=== PATIENT | male | born 1940 | race Caucasian/White ===

== ENCOUNTER 2018-10-25 04:20 | Emergency (ER) | payer MEDICARE, BC ==
[~2018-10-25] VITALS: Ht 182.9 cm; Wt 79.5 kg
[~2018-10-25 04:20] MED LIST: ASPIRIN 32325 MG/TA1 PO; ASPIRIN 32325 MG/TAB PO; ASPIRIN 81M81 MG/TA2 PO; ASPIRIN E.C.325 MG PO; CARAFATE S1 GM/10 ML PO; CARDENE 30MG CA30 M1 PO; CARDENE 30MG CA30 MG PO; CARDURA 2MG2 MG PO; CARDURA 8MG TAB8 MG PO; CLOPIDOGREL PO; CO Q-1010 M1 PO; COLACE 100100 MG/CAP PO; DOXAZOCIN PO; EFFIENT PO; ELAVIL10 MG PO; GINKGO3 PO; LEVOTHYROXINE0.05 M1 PO; LOPRESSOR 225 MG/TAB PO; LOPRESSOR 550 MG/TAB PO; LORTAB 5/500 501 TAB PO; MILK THISTLE E140 M1 PO; MULTI VITAMINS1 TAB PO; NITROQUICK0.4 MG SL; NITROSTAT0.4 MG/TAB SL; NORCO 325 MG-51 TAB PO; OMEPRAZOLE20 M1 PO; PLAVIX 75MG TAB75 MG PO; PRIL40 PO; PRILOSEC 20MG20 MG PO; PRILOSEC PO; PROSCAR 5MG5 MG PO; PROTONIX 40MG T40 MG PO; PYRIDIUM200 M1 PO; RANITIDINE300 MG PO; RT ADVAIR 128 DISKUS IH; RT SPIRIVA18 MCG IH; SIMVASTATIN5 MG PO; SYNTHROID0.05 MG/TA PO; TIROSINT50 MC1 PO; TOPROL XL 25MG25 MG PO; TYLENOL 325MG325 MG PO; VYTORIN PO; ZANTAC 300300 MG PO; ZANTAC PO; ZITHROMAX 250M250 MG PO; ZOCOR 80MG80 MG PO; ZOFRAN 4MG T4 MG/TAB PO
[2018-10-25 04:39] VITALS: TEMP 98
[2018-10-25 04:44] LABS: BASO # 0.1 (0.0-0.2); BASO % 1.3 % (0.0-2.0); EOS # 0.1 (0.0-0.7); EOS % 1.6 % (0-4.0); GRAN # 2.7 (1.4-6.5); GRAN % 49.5 % (42.2-75.2); HEMATOCRIT 43.2 % (42.0-52.0); HEMOGLOBIN 15.3 g/dl (13.5-18.0); LYMPH # 2.1 (1.2-3.4); LYMPH % 38.6 % (20.0-51.0); MEAN CELL VOLUME 99 fl (80.0-100.0); MEAN CORPUSCULAR HEMOGLOBIN 35 pg (27.0-31.0); MEAN CORPUSCULAR HGB CONC 35 g/dl (33.0-37.0); MEAN PLATELET VOLUME 8.9 fl (7.4-10.4); MONO # 0.5 (0.1-0.6); MONO % 8.8 % (1.7-9.3); PLATELET COUNT 233 K/mm3 (130-400); RED BLOOD COUNT 4.35 M/mm3 (4.20-5.60); REDCELL DISTRIBUTION WIDTH-CV 13.1 % (11.5-14.5)
[2018-10-25 04:49] LABS: PROTHROMBIN TIME 11.6 SECONDS (9.7-12.8)
[2018-10-25 05:16] LABS: ALBUMIN 3.7 gm/dL (3.5-5.0); BILIRUBIN,TOTAL 0.6 mg/dL (0.0-1.0); CALCIUM 9.1 mg/dL (8.4-10.2); CREATININE, serum 0.92 mg/dL (0.66-1.25); POTASSIUM 4.1 mmol/L (3.4-5.0); TOTAL PROTEIN 6.7 gm/dL (6.4-8.2)
[2018-10-25 05:55] VITALS: BP 80/62
[2018-10-25] MEDS ORDERED: OMNICEF 300MG300 MG PO (07:41)
[2018-10-25] MEDS ORDERED: ZITHROMAX Z PA250 MG PO (07:41)
[2018-10-25 08:55] VITALS: PULSE 70
== END 2018-10-25 08:50 | disposition home or self-care (01) ==
LOC: COL.ER 04:20
PROVIDERS: Emergency Medicine
DX: J18.9 Pneumonia, unspecified organism (principal); I10 Essential (primary) hypertension; E03.9 Hypothyroidism, unspecified; I25.10 Atherosclerotic heart disease of native coronary artery without angina pectoris; Z79.82 Long term (current) use of aspirin; Z95.0 Presence of cardiac pacemaker; Z95.5 Presence of coronary angioplasty implant and graft
CPT/HCPCS: A4216; J0696; J2270; Q9967

== ENCOUNTER → 2019-01-01 | Outpatient (CLI) | payer MEDICARE, BC ==
[~2019-01-01] MED LIST changes: +OMNICEF 300MG300 MG PO; +ZITHROMAX Z PA250 MG PO
== END ==
LOC: COL.RAD 13:53
DX: R91.8 Other nonspecific abnormal finding of lung field (principal); Z95.0 Presence of cardiac pacemaker; Z95.828 Presence of other vascular implants and grafts

== ENCOUNTER 2019-02-20 09:16 | Emergency (ER) | payer MEDICARE, BC ==
[~2019-02-20] VITALS: Ht 182.9 cm; Wt 81.8 kg
[2019-02-20 09:58] VITALS: TEMP 97.8
[2019-02-20] MEDS ORDERED: NORCO 325 MG-51 TAB PO (11:37)
[2019-02-20 12:04] VITALS: BP 140/97; PULSE 69
== END 2019-02-20 12:00 | disposition home or self-care (01) ==
LOC: COL.ER 09:16
DX: S86.912A Strain of unspecified muscle(s) and tendon(s) at lower leg level, left leg, initial encounter (principal); I25.10 Atherosclerotic heart disease of native coronary artery without angina pectoris; Z87.891 Personal history of nicotine dependence; Z95.5 Presence of coronary angioplasty implant and graft; Y92.009 Unspecified place in unspecified non-institutional (private) residence as the place of occurrence of the external cause; X50.0XXA Overexertion from strenuous movement or load, initial encounter
CPT/HCPCS: L1846

== ENCOUNTER → 2019-03-08 | Outpatient (CLI) | payer MEDICARE, BC | LOC: COL.RAD 10:13 | DX: S83.232A Complex tear of medial meniscus, current injury, left knee, initial encounter (principal); M47.814 Spondylosis without myelopathy or radiculopathy, thoracic region; R06.02 Shortness of breath; Z95.0 Presence of cardiac pacemaker ==

== ENCOUNTER → 2019-12-18 | Outpatient (CLI) | payer MEDICARE, BC ==
[2019-12-18 12:32] LABS: HEMATOCRIT 47.1 % (42.0-52.0); HEMOGLOBIN 16.3 g/dl (13.5-18.0); MEAN CELL VOLUME 101 fl (80.0-100.0); MEAN CORPUSCULAR HEMOGLOBIN 35 pg (27.0-31.0); MEAN CORPUSCULAR HGB CONC 35 g/dl (33.0-37.0); MEAN PLATELET VOLUME 8.6 fl (7.4-10.4); PLATELET COUNT 269 K/mm3 (130-400); RED BLOOD COUNT 4.66 M/mm3 (4.20-5.60); REDCELL DISTRIBUTION WIDTH-CV 13.5 % (11.5-14.5)
[2019-12-18 12:40] LABS: ANION GAP 7 mmol/L (7-16); BLOOD UREA NITROGEN 21 mg/dL (9-20); CALCIUM 9.8 mg/dL (8.4-10.2); CARBON DIOXIDE 29 mmol/L (22-30); CHLORIDE 103 mmol/L (98-107); CREATININE, serum 1.25 (0.66-1.25); GLUCOSE 121 mg/dL (74-106); POTASSIUM 4.7 mmol/L (3.4-5.0); SODIUM 139 mmol/L (137-145)
[2019-12-18 12:56] LABS: TROPONIN-I < 0.012 ng/mL (0.000-0.035)
== END ==
LOC: COL.LAB 12:01
PROVIDERS: Internal Medicine Interventional Cardiology
DX: I20.8 Other forms of angina pectoris (principal)

== ENCOUNTER → 2020-01-02 | Outpatient (CLI) | payer MEDICARE, BC | LOC: COL.RAD 10:07 | DX: K76.89 Other specified diseases of liver (principal) ==

== ENCOUNTER → 2020-01-09 | Outpatient (CLI) | payer MEDICARE, BC | LOC: COL.RAD 07:56 | DX: Z01.812 Encounter for preprocedural laboratory examination (principal); K44.9 Diaphragmatic hernia without obstruction or gangrene | CPT/HCPCS: Q9967 ==

== ENCOUNTER → 2020-06-22 | Outpatient (CLI) | payer MEDICARE, BC | LOC: ZCOL.LAB 16:10 | DX: J02.9 Acute pharyngitis, unspecified (principal); J34.89 Other specified disorders of nose and nasal sinuses ==

== ENCOUNTER → 2021-09-20 | Outpatient (CLI) | payer MEDICARE, BC ==
[~2021-09-20] MED LIST changes: +TRELEGY ELLIPT1 EACH IH
[2021-09-20 17:46] LABS: ALANINE AMINOTRANSFERASE 17 U/L (0-55); ALKALINE PHOSPHATASE 89 U/L (40-150); ANION GAP 9 mmol/L (7-16); AST,SGOT 22 U/L (5-34); BLOOD UREA NITROGEN 11 mg/dL (8-26); CALCIUM 9.7 mg/dL (8.4-10.2); CARBON DIOXIDE 25 mmol/L (23-31); CHLORIDE 105 mmol/L (98-107); CREATININE, serum 0.87 mg/dL (0.72-1.25); GLUCOSE 96 mg/dL (70-99); SODIUM 139 mmol/L (136-145); TOTAL PROTEIN 7.3 gm/dL (6.2-8.1)
[2021-09-20 17:47] LABS: TROPONIN-I < 0.010 ng/mL (0.00-0.033)
[2021-09-21 10:36] LABS: THYROID STIMULATING HORMONE 2.598 uIU/mL (0.350-4.940)
== END ==
LOC: ZCOL.LAB 17:05
PROVIDERS: Nurse Practitioner
DX: R07.9 Chest pain, unspecified (principal)

== ENCOUNTER → 2021-12-27 | Outpatient (CLI) | payer MEDICARE, BC ==
[~2021-12-27] VITALS: Ht 182.9 cm; Wt 79.8 kg
[2021-12-27 08:35] VITALS: BP 156/90; PULSE 85; TEMP 97.8
--- NOTE | 2021-12-27 09:05 | NUR ---
Pt to ct scanner, Dr Martin requested a new scan prior to procedure. 914 Pt hooked up to monitors and O2 on at 2l/nc. 924 Dr Martin into talk with pt. Dr. Martin informed pt no biopsy needed. Pt unhooked and back to holding area. INT removed and cathter tip intact. 2x2 and coban to site. 0930 Pt out to waiting room to await daughter to pick him up. Denies complaints at this time.
== END ==
LOC: COL.RAD 07:57
DX: R91.8 Other nonspecific abnormal finding of lung field (principal)
CPT/HCPCS: Q9967

== ENCOUNTER → 2023-01-13 | Outpatient (CLI) | payer MEDICARE, BC | LOC: COL.RAD 13:08 | DX: K44.9 Diaphragmatic hernia without obstruction or gangrene (principal); I77.810 Thoracic aortic ectasia; R91.8 Other nonspecific abnormal finding of lung field | CPT/HCPCS: Q9967 ==